=== PATIENT | male | born 1985 | race African-American/Black ===

== ENCOUNTER 2016-12-20 19:58 | Emergency (ER) | payer OTHER ==
[~2016-12-20] VITALS: Ht 180.3 cm; Wt 120.2 kg
[2016-12-20] MEDS ORDERED: LISINOPRIL10 MG PO (20:19)
[2016-12-20] MEDS ORDERED: HYDROCHLOROTH12.5 M1 PO (20:19)
[2016-12-20] MEDS ORDERED: CARVEDILOL12.5 MG PO (20:20)
[2016-12-20 21:04] LABS: ABSOLUTE NEUTROPHILS 5.1 thou/uL (1.4-8.2); BASOPHILS 0.9 % (0.0-2.0); EOSINOPHILS 1.3 % (0.0-3.0); HEMOGLOBIN 14.1 gm/dL (14.0-18.0); LYMPHOCYTES 31.2 % (24.0-44.0); MCH 30.8 pg (26.0-34.0); MCHC 34.3 g/dL (28.0-37.0); MCV 89.8 fL (80.0-100.0); MONOCYTES 7.3 % (1.0-8.0); PLATELET COUNT 211 thou/uL (150-400); POLYS 59.3 % (36.0-66.0); RBC 4.57 mil/uL (4.50-6.00); RDW 14.8 % (10.5-14.5); WBC 8.6 thou/uL (4.0-11.0)
[2016-12-20 21:06] LABS: MANUAL DIFF NO
[2016-12-20 21:16] LABS: CALCIUM 7.9 mg/dL (8.5-10.1); CREATININE 1.1 mg/dL (0.7-1.3); POTASSIUM 3.7 mmol/L (3.5-5.1)
[2016-12-20 21:23] LABS: ALBUMIN 3.5 g/dL (3.4-5.0); TOTAL BILIRUBIN 0.3 mg/dL (<0.1-1.0); TOTAL PROTEIN 6.3 g/dL (6.4-8.2)
[2016-12-20 22:57] VITALS: BP 144/98
== END 2016-12-20 23:06 | disposition home or self-care (01) ==
LOC: ER 19:58
PROVIDERS: Physician Assistant
DX: K64.8 Other hemorrhoids (principal); I10 Essential (primary) hypertension; I25.2 Old myocardial infarction; Z86.73 Personal history of transient ischemic attack (TIA), and cerebral infarction without residual deficits